=== PATIENT | male | born 1980 | race Hispanic/Latino ===

== ENCOUNTER 2018-09-18 14:31 | Outpatient (CLI) | payer OTHER ==
--- NOTE | 2018-09-18 18:27 | RAD ---
RADIOGRAPH LEFT ANKLE 3 VIEWS: 09/18/18 HISTORY: 37-year-old male with nontraumatic left ankle pain for one month. FINDINGS: The ankle mortise is congruent. Talar dome is maintained. No fracture. Soft tissue edema, especially medially and anteriorly. Minimal osteophytosis. IMPRESSION: 1. No significant osseous abnormality. 2. Soft tissue edema. POS: [facility]
== END 2018-09-18 14:32 | disposition home or self-care (01) ==
LOC: BICRAD 14:31
DX: M25.572 Pain in left ankle and joints of left foot (principal); R60.0 Localized edema